=== PATIENT | female | born 1955 | race Hispanic/Latino ===

== ENCOUNTER 2018-02-20 08:38 | Outpatient (CLI) | payer OTHER ==
--- NOTE | 2018-02-20 12:45 | XRay Report ---
XRAY RIGHT HAND THREE VIEWS: 02/20/18 08:38:00 CLINICAL: Right hand pain. FINDINGS: Mild diffuse osteopenia. Status post ORIF distal radius fracture with no fracture lines. The carpal bones are intact. 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 Mild osteoarthritis at the DIPs and PIP joints of the fourth and fifth digits. No erosions. Normal soft tissues. IMPRESSION: Mild arthritis. Status post ORIF of a remote distal radius fracture.
== END 2018-02-20 08:39 | disposition home or self-care (01) ==
LOC: SPVIMAG 08:38
PROVIDERS: ATTEND Orthopaedic Surgery Sports Medicine
DX: M19.041 Primary osteoarthritis, right hand (principal); M18.9 Osteoarthritis of first carpometacarpal joint, unspecified; M85.841 Other specified disorders of bone density and structure, right hand; S52.501D Unspecified fracture of the lower end of right radius, subsequent encounter for closed fracture with routine healing; X58.XXXD Exposure to other specified factors, subsequent encounter